=== PATIENT | male | born 1945 | race Caucasian/White ===

== ENCOUNTER → 2017-10-09 09:59 | Outpatient (CLI) | payer MEDICARE, SELFPAY ==
[2017-10-09 13:05] LABS: ALB/GLOB Ratio 1.3 RATIO (0.9-2.4); AST(SGOT) 17 U/L (15-37); Alanine Aminotransfer ALT/SGPT 25 U/L (16-61); Albumin, Serum 4.1 g/dL (3.2-5.0); Alkaline Phosphatase 47 U/L (45-117); Anion Gap 8 (5-15); BUN 19 mg/dL (7-18); BUN/Creat Ratio 21.2 RATIO (10-20); Calcium,Total 9.1 mg/dL (8.5-10.1); Chloride 104 mmol/L (98-107); Cholesterol 235 mg/dL (200); EST Glomerular Filtration Rate 89 mL/min (>60); Est Glom Filt Rate - Afr Amer 108 mL/min (>60); Globulin 3.2 g/dL (2.2-4.2); Glucose 94 mg/dL (74-106); High Density Lipoprotein 49 mg/dL; Potassium 4.2 mmol/L (3.5-5.1); Protein, Total 7.3 g/dL (6.4-8.2); Sodium Level 140 mmol/L (136-145); Triglycerides 115 mg/dL; Very Low Density Lipoprotein 23 mg/dL (5-40)
[2017-10-09 13:35] LABS: Microalbumin,Random Urine 12.1 mg/L (NO RANGE EST.)
== END ==
PROVIDERS: Family Provider Family Medicine; PCP Family Medicine; Visit Provider Family Medicine
DX: Z00.00 Encounter for general adult medical examination without abnormal findings (principal); R35.0 Frequency of micturition
CPT/HCPCS: 36415; 80053; 80061; 82043; 82570

== ENCOUNTER → 2019-02-04 09:04 | Outpatient (CLI) | payer MEDICARE, SELFPAY ==
[2019-02-04 12:55] LABS: ALB/GLOB Ratio 1.4 RATIO (0.9-2.4); AST(SGOT) 13 U/L (15-37); Alanine Aminotransfer ALT/SGPT 23 U/L (16-61); Albumin, Serum 4.2 g/dL (3.2-5.0); Alkaline Phosphatase 47 U/L (45-117); Anion Gap 7 (5-15); BUN 20 mg/dL (7-18); BUN/Creat Ratio 20.3 RATIO (10-20); Calcium,Total 9.2 mg/dL (8.5-10.1); Chloride 107 mmol/L (98-107); Cholesterol 222 mg/dL (200); Creatinine, Serum 0.98 mg/dL (0.70-1.30); EST Glomerular Filtration Rate 80 mL/min (>60); Est Glom Filt Rate - Afr Amer 96 mL/min (>60); Globulin 2.9 g/dL (2.2-4.2); Glucose 94 mg/dL (74-106); High Density Lipoprotein 49 mg/dL; PSA,Total - Annual Screen 0.56 ng/mL (0.00-4.00); Potassium 4.8 mmol/L (3.5-5.1); Protein, Total 7.1 g/dL (6.4-8.2); Sodium Level 141 mmol/L (136-145); Thyroid Stim Hormone (TSH) 2.29 uIU/mL (0.358-3.74); Triglycerides 127 mg/dL; Very Low Density Lipoprotein 25 mg/dL (5-40)
== END ==
PROVIDERS: Family Provider Family Medicine; PCP Family Medicine; Referring Provider Family Medicine; Visit Provider Family Medicine
DX: E78.00 Pure hypercholesterolemia, unspecified (principal); N40.0 Benign prostatic hyperplasia without lower urinary tract symptoms
CPT/HCPCS: 36415; 80053; 80061; 84153; 84443; G0103

== ENCOUNTER → 2020-02-17 07:20 | Outpatient (CLI) | payer MEDICARE, SELFPAY ==
[2020-02-17 10:11] LABS: ALB/GLOB Ratio 1.4 RATIO (0.9-2.4); AST(SGOT) 9 U/L (15-37); Alanine Aminotransfer ALT/SGPT 18 U/L (16-61); Albumin, Serum 4.2 g/dL (3.2-5.0); Alkaline Phosphatase 42 U/L (45-117); Anion Gap 5 (5-15); BUN 18 mg/dL (7-18); BUN/Creat Ratio 18.5 RATIO (10-20); Calcium,Total 9.4 mg/dL (8.5-10.1); Chloride 108 mmol/L (98-107); Cholesterol 232 mg/dL (200); Creatinine, Serum 0.97 mg/dL (0.70-1.30); EST Glomerular Filtration Rate 81 mL/min (>60); Est Glom Filt Rate - Afr Amer 98 mL/min (>60); Glucose 96 mg/dL (74-106); High Density Lipoprotein 49 mg/dL; Protein, Total 7.2 g/dL (6.4-8.2); Sodium Level 142 mmol/L (136-145); Thyroid Stim Hormone (TSH) 2.28 uIU/mL (0.358-3.74); Triglycerides 123 mg/dL; Very Low Density Lipoprotein 25 mg/dL (5-40)
== END ==
PROVIDERS: PCP Family Medicine; Referring Provider Family Medicine; Visit Provider Family Medicine
DX: E78.00 Pure hypercholesterolemia, unspecified (principal)
CPT/HCPCS: 36415; 80053; 80061; 84443

== ENCOUNTER 2020-09-03 17:06 | Outpatient (RCR) | payer MEDICARE, SELFPAY | END 2020-09-03 23:59 | LOC: IMMUN 17:06 | PROVIDERS: PCP Family Medicine; Referring Provider Family Medicine; Visit Provider Family Medicine | DX: Z23 Encounter for immunization (principal) | CPT/HCPCS: 0011A; 0012A ==

== ENCOUNTER → 2021-04-10 09:43 | Outpatient (CLI) | payer MEDICARE, SELFPAY ==
[2021-04-10 10:46] LABS: ALB/GLOB Ratio 1.2 RATIO (0.9-2.4); AST(SGOT) 13 U/L (15-37); Alanine Aminotransfer ALT/SGPT 22 U/L (16-61); Alkaline Phosphatase 48 U/L (45-117); Anion Gap 6 (5-15); BUN 17 mg/dL (7-18); BUN/Creat Ratio 17.5 RATIO (10-20); Calcium,Total 9.2 mg/dL (8.5-10.1); Chloride 105 mmol/L (98-107); Cholesterol 240 mg/dL (200); Creatinine, Serum 0.97 mg/dL (0.70-1.30); EST Glomerular Filtration Rate 81 mL/min (>60); Est Glom Filt Rate - Afr Amer 98 mL/min (>60); Globulin 3.3 g/dL (2.2-4.2); Glucose 104 mg/dL (74-106); High Density Lipoprotein 52 mg/dL; PSA,Total - Annual Screen 0.52 ng/mL (0.00-4.00); Potassium 4.8 mmol/L (3.5-5.1); Protein, Total 7.3 g/dL (6.4-8.2); Sodium Level 140 mmol/L (136-145); Thyroid Stim Hormone (TSH) 1.98 uIU/mL (0.358-3.74); Triglycerides 122 mg/dL; Very Low Density Lipoprotein 24 mg/dL (5-40)
[2021-04-10 11:27] LABS: Hepatitis C Antibody Non-Reactive (Nonreactive)
== END ==
PROVIDERS: PCP Family Medicine; Referring Provider Family Medicine; Visit Provider Nurse Practitioner Family
DX: Z13.1 Encounter for screening for diabetes mellitus (principal); Z13.29 Encounter for screening for other suspected endocrine disorder; Z11.59 Encounter for screening for other viral diseases; Z12.5 Encounter for screening for malignant neoplasm of prostate; E78.00 Pure hypercholesterolemia, unspecified; N40.0 Benign prostatic hyperplasia without lower urinary tract symptoms
CPT/HCPCS: 36415; 80053; 80061; 84153; 84443; 86803; G0103

== ENCOUNTER 2021-10-08 10:36 | Outpatient (CLI) | payer MEDICARE, SELFPAY ==
[2021-10-08 12:15] LABS: Absolute Lymphocyte Count 1.08 X10^3/uL (0.83-4.51); Absolute Neutrophil Count 2.9 X10^3/uL (2.0-7.7); Basophil# 0.02 X10^3/uL; Basophil% 0.5 % (0-1); Eosinophil# 0.05 X10^3/uL; Eosinophils% 1.1 % (0-5); Hematocrit 42.2 % (40-54); Lymphocyte # 1.08 X10^3/ul (0.83-4.51); Lymphocyte % 24.8 % (19-41); Mean Corp Hgb Conc 33.2 g/dL (32-36); Mean Corpuscular Hgb 31.7 pg (27.0-32.0); Mean Corpuscular Volume 95.7 fL (80-94); Mean Platelet Vol. 11.1 fl (6.2-12.0); Monocyte# 0.32 X10^3/uL; Monocyte% 7.3 % (0-10); NRBC Flagged by Analyzer 0 % (0-5); Neutrophil # 2.88 X10^3/uL (2.7-7.7); Neutrophil % 66.1 % (47-70); Platelet Count 172 K/mm3 (150-450); RBC Distribution Width CV 12.6 % (11.6-14.6); RBC Distribution Width SD 44.3 fl (35.1-43.9); Red Blood Count 4.41 M/mm3 (4.6-6.2); White Blood Count 4.4 K/mm3 (4.4-11.0)
[2021-10-08 13:26] LABS: ALB/GLOB Ratio 1.4 RATIO (0.9-2.4); AST(SGOT) 15 U/L (15-37); Alanine Aminotransfer ALT/SGPT 19 U/L (16-61); Albumin, Serum 4.2 g/dL (3.2-5.0); Alkaline Phosphatase 41 U/L (45-117); Anion Gap 6 (5-15); BUN 18 mg/dL (7-18); Calcium,Total 9.9 mg/dL (8.5-10.1); Chloride 107 mmol/L (98-107); Creatinine, Serum 0.95 mg/dL (0.70-1.30); EST Glomerular Filtration Rate 83 mL/min (>60); Est Glom Filt Rate - Afr Amer 100 mL/min (>60); Glucose 93 mg/dL (74-106); Lipase 35 U/L (73-393); Potassium 4.3 mmol/L (3.5-5.1); Protein, Total 7.2 g/dL (6.4-8.2); Sodium Level 140 mmol/L (136-145); Thyroid Stim Hormone (TSH) 1.99 uIU/mL (0.358-3.74)
== END 2021-10-08 23:59 | disposition home or self-care (01) ==
LOC: MFPLAB 10:41
PROVIDERS: PCP Family Medicine; Referring Provider Family Medicine; Visit Provider Family Medicine
DX: R10.84 Generalized abdominal pain (principal); R00.2 Palpitations
CPT/HCPCS: 36415; 80053; 83690; 84443; 85025

== ENCOUNTER 2021-10-09 10:58 | Outpatient (CLI) | payer MEDICARE, SELFPAY | END 2021-10-09 23:59 | disposition home or self-care (01) | PROVIDERS: PCP Family Medicine; Referring Provider Family Medicine; Visit Provider Family Medicine | DX: R10.84 Generalized abdominal pain (principal) | CPT/HCPCS: 83986 ==

== ENCOUNTER 2021-10-16 06:43 | Outpatient (CLI) | payer MEDICARE, SELFPAY ==
--- NOTE | 2021-10-16 06:46 | CT_ITS ---
STUDY: CT ABDOMEN AND PELVIS WITHOUT CONTRAST REASON FOR EXAM: Male, 75 years old. Intermittent abdominal pain, bloating, burping and frequent urination. RADIATION DOSAGE (If Supplied By Facility): CTDIvol = ( 8.32 ) mGy, DLP = ( 394.98 ) mGycm TECHNIQUE: Transaxial images were obtained from the dome of the diaphragm to the symphysis pubis without oral contrast, and without intravenous contrast. Sagittal and coronal images were reconstructed. Individualized dose optimization techniques were used for this CT. COMPARISON: None. FINDINGS: The visualized lung bases are unremarkable. The visualized portions of the heart are within normal limits. Normal liver. Increased densities are seen within the gallbladder lumen. This may be secondary to either tiny gallstones or sludge within the gallbladder lumen. Correlation with ultrasound is recommended if clinically indicated. Normal spleen. Normal pancreas. There is hyperplasia of the left adrenal gland. Normal right kidney. Normal left kidney. There is a small hiatal hernia. Normal small intestine. There are scattered colonic diverticula consistent with diverticulosis. Moderate amount of fecal material is seen in the colon. The appendix is visualized and appears normal. There is scattered atherosclerotic calcification of the abdominal aorta, without a demonstrated aneurysm. Normal inferior vena cava. Normal retroperitoneum. Diffusely thickened urinary bladder wall. The prostate measures 2.7 cm x 4.4 cm. Phleboliths are seen within the pelvis. There is a small umbilical hernia containing fat. There are diffuse degenerative changes of the visualized lumbar spine. CT/Abdomen/Pelvis without Cont IMPRESSION: Increased density seen within the gallbladder lumen. Correlation with ultrasound of the gallbladder is recommended if clinically indicated. Diffusely thickened urinary bladder wall. Electronically Signed: Dileep Frank MD at 8:52 EDT ,
== END 2021-10-16 23:59 | disposition home or self-care (01) ==
LOC: CT 06:43
PROVIDERS: PCP Family Medicine; Visit Provider Family Medicine
DX: R10.84 Generalized abdominal pain (principal); R35.0 Frequency of micturition; R14.0 Abdominal distension (gaseous)
CPT/HCPCS: 74176

== ENCOUNTER → 2021-10-24 | Outpatient (CLI) | payer MEDICARE, SELFPAY ==
--- NOTE | 2021-10-24 08:51 | US_ITS ---
STUDY: ABDOMINAL ULTRASOUND - RIGHT UPPER QUADRANT REASON FOR VISIT: Male, 75 years old gallstones TECHNIQUE: Ultrasound evaluation of the right upper quadrant was performed with real-time and static kenny-scale imaging. TECHNICAL QUALITY: Adequate. COMPARISON: None. FINDINGS: Liver: The liver measures 14.2 cm. There is normal echogenicity of the liver. The bile ducts are within normal limits. There is hepatic color flow. The direction of portal flow is hepatopetal. There is no demonstrated mass lesion. Gallbladder: Normal distended gallbladder. The gallbladder wall measures 2 mm. There is a negative sonographic Gleason''s sign. There is no pericholecystic fluid. There are no gallstones. Common Bile Duct (C.B.D.): The common bile duct measures 5 mm. Pancreas: Normal size of the head, body and tail of the pancreas. There is normal echogenicity of the pancreas. There is no demonstrated pancreatic mass or cyst. Right Kidney: Normal size of the right kidney. The right kidney measures 11.4 x 4.8 x 5.1 cm. Normal renal cortex. The right cortex measures 1.1 cm. There is no demonstrated renal mass or cyst. There is no right hydronephrosis. US/Abdomen Limited IMPRESSION: Normal right upper quadrant ultrasound examination. Electronically Signed: Zan Parker MD at 11:43 EDT ,
== END | disposition home or self-care (01) ==
LOC: US 08:50
PROVIDERS: PCP Family Medicine; Referring Provider Family Medicine; Visit Provider Family Medicine
DX: K80.20 Calculus of gallbladder without cholecystitis without obstruction (principal)
CPT/HCPCS: 76705

== ENCOUNTER → 2022-03-13 | Outpatient (CLI) | payer MEDICARE, SELFPAY ==
--- NOTE | 2022-03-13 07:47 | ECHOCS_ITS ---
Version 2 Reason For Study: ARRHYTHMIA Procedure This was a 2D Doppler, Color Flow transthoracic echocardiogram. The study was technically difficult. Due to body habitus. Contrast injection was performed. Exam performed in department. Left Ventricle Normal LV size. Left ventricular systolic function is normal. The estimated ejection fraction is 55 %. No regional wall motion abnormalities noted. Right Ventricle Normal RV size. Normal systolic function. Atria Normal left atrium. Normal right atrium. Patent foramen ovale. Hypermobile atrial septum. Mitral Valve Normal mitral valve. Tricuspid Valve Normal tricuspid valve. Aortic Valve Trisinus/trileaflet aortic valve. Pulmonic Valve Normal pulmonic valve. Great Vessels Normal aortic root. The pulmonary artery is normal size. Normal inferior vena cava. Pericardium/Pleural No pericardial effusion. Medication 22 gauge I.V. with prn adaptor inserted into left arm. Performed a rapid injection of agitated mix of 9 cc saline and 1cc air to assess for atrial septal defect. Diluted definity 3.0ml given slow IV push to enhance endocardial definition. MMode/2D Measurements & Calculations LVIDd: 5.7 cm IVSd: 0.90 cm LVOT diam: 2.2 cm LVIDs: 3.5 cm LVPWd: 0.90 cm RVDd: 4.3 cm FS: 38.6 % LVOT area: 3.9 cm2 Ao root diam: 4.0 cm LAV(MOD-bp): 91.9 ml LVAd ap4: 43.9 cm2 LAV(MOD-bp) Indexed: 43.5 ml/m2 LVLd ap4: 10.1 cm LAV(MOD-sp2): 87.6 ml EDV(MOD-sp4): 164.0 ml LAV(MOD-sp4): 80.8 ml EDV(sp4-el): 162.6 ml LVAs ap4: 26.6 cm2 LVLs ap4: 8.5 cm ESV(MOD-sp4): 70.4 ml ESV(sp4-el): 71.2 ml EF(MOD-sp4): 57.1 % EF(sp4-el): 56.2 % LVAd ap2: 31.4 cm2 SV(MOD-sp4): 93.6 ml SV(MOD-sp2): 47.0 ml LVLd ap2: 9.2 cm EDV(MOD-sp2): 90.1 ml EDV(sp2-el): 91.3 ml LVAs ap2: 19.7 cm2 LVLs ap2: 7.7 cm ESV(MOD-sp2): 43.1 ml ESV(sp2-el): 42.5 ml EF(MOD-sp2): 52.2 % SV(sp4-el): 91.5 ml LA dimension(2D): 4.3 cm LA A4 area: 23.8 cm2 RA A4 area: 19.1 cm2 Time Measurements MV dec time: 0.20 sec Doppler Measurements & Calculations MV E max jacoby: 83.2 cm/sec Lat Peak E' Jacoby: 14.5 cm/sec Med Peak E' Jacoby: 9.4 cm/sec MV A max jacoby: 67.7 cm/sec E/E' lat: 5.7 E/E' med: 8.8 MV E/A: 1.2 Ao V2 max: 141.7 cm/sec LV V1 max: 110.4 cm/sec MV dec slope: 434.0 cm/sec2 Ao max P.0 mmHg LV V1 max P.9 mmHg Ao V2 mean: 102.0 cm/sec LV V1 mean P.6 mmHg Ao mean P.7 mmHg LV V1 mean: 76.5 cm/sec Ao V2 VTI: 38.4 cm LV V1 VTI: 27.1 cm MELANY(I,D): 2.7 cm2 MELANY(V,D): 3.0 cm2 SV(LVOT): 105.3 ml PA V2 max: 97.0 cm/sec TR max jacoby: 293.9 cm/sec TR max P.7 mmHg ECHO/Echo Complete W/ Contrast Interpretation Summary Normal LV size. Left ventricular systolic function is normal. The estimated ejection fraction is 55 %. Patent foramen ovale. Hypermobile atrial septum. Contrast injection was performed. Ordering Physician: Emil Coello Referring Physician: Brendan Reyez Performed By: Caryl Bryant RDCS, RVT
== END | disposition home or self-care (01) ==
PROVIDERS: PCP Family Medicine; Referring Provider Internal Medicine Cardiovascular Disease; Visit Provider Internal Medicine Cardiovascular Disease
DX: R00.2 Palpitations (principal)
CPT/HCPCS: 93306; Q9957; A4216; C8929

== ENCOUNTER → 2022-06-09 | Outpatient (CLI) | payer MEDICARE, SELFPAY ==
[2022-06-09 10:06] LABS: Absolute Lymphocyte Count 1.25 X10^3/uL (0.83-4.51); Absolute Neutrophil Count 3.8 X10^3/uL (2.0-7.7); Basophil# 0.03 X10^3/uL; Basophil% 0.5 % (0-1); Eosinophil# 0.17 X10^3/uL; Hematocrit 43.5 % (40-54); Hemoglobin 14.8 g/dL (13.0-16.5); Lymphocyte # 1.25 X10^3/ul (0.83-4.51); Lymphocyte % 22.2 % (19-41); Mean Corpuscular Volume 97.1 fL (80-94); Mean Platelet Vol. 11.5 fl (6.2-12.0); Monocyte# 0.36 X10^3/uL; Monocyte% 6.4 % (0-10); NRBC Flagged by Analyzer 0 % (0-5); Neutrophil # 3.79 X10^3/uL (2.7-7.7); Neutrophil % 67.5 % (47-70); Platelet Count 166 K/mm3 (150-450); RBC Distribution Width CV 12.5 % (11.6-14.6); RBC Distribution Width SD 45.1 fl (35.1-43.9); Red Blood Count 4.48 M/mm3 (4.6-6.2); White Blood Count 5.6 K/mm3 (4.4-11.0)
[2022-06-09 10:41] LABS: ALB/GLOB Ratio 1.5 RATIO (0.9-2.4); AST(SGOT) 13 U/L (15-37); Alanine Aminotransfer ALT/SGPT 23 U/L (16-61); Albumin, Serum 4.1 g/dL (3.2-5.0); Alkaline Phosphatase 52 U/L (45-117); Anion Gap 5 (5-15); BUN 25 mg/dL (7-18); BUN/Creat Ratio 24.8 RATIO (10-20); Calcium,Total 9.1 mg/dL (8.5-10.1); Chloride 104 mmol/L (98-107); Creatinine, Serum 1.01 mg/dL (0.70-1.30); EST Glomerular Filtration Rate 77 mL/min (>60); Est Glom Filt Rate - Afr Amer 93 mL/min (>60); Globulin 2.7 g/dL (2.2-4.2); Glucose 93 mg/dL (74-106); Magnesium 2.5 mg/dL (1.6-2.6); Potassium 4.3 mmol/L (3.5-5.1); Protein, Total 6.8 g/dL (6.4-8.2); Sodium Level 140 mmol/L (136-145); Thyroid Stim Hormone (TSH) 2.05 uIU/mL (0.358-3.74)
== END | disposition home or self-care (01) ==
PROVIDERS: PCP Family Medicine; Referring Provider Family Medicine; Visit Provider Family Medicine
DX: I47.1 Supraventricular tachycardia (principal); K86.89 Other specified diseases of pancreas
CPT/HCPCS: 36415; 80053; 83735; 84443; 85025

== ENCOUNTER → 2022-09-08 | Outpatient (CLI) | payer MEDICARE, SELFPAY ==
[2022-09-08 15:43] LABS: Anion Gap 8 (5-15); BUN 15 mg/dL (7-18); BUN/Creat Ratio 16.7 RATIO (10-20); Calcium,Total 9.7 mg/dL (8.5-10.1); Chloride 104 mmol/L (98-107); EST Glomerular Filtration Rate 88 mL/min (>60); Est Glom Filt Rate - Afr Amer 106 mL/min (>60); Glucose 101 mg/dL (74-106); Potassium 4.7 mmol/L (3.5-5.1); Sodium Level 139 mmol/L (136-145)
== END | disposition home or self-care (01) ==
LOC: MFPLAB 12:08
PROVIDERS: PCP Family Medicine; Visit Provider Family Medicine
DX: Z01.818 Encounter for other preprocedural examination (principal)
CPT/HCPCS: 36415; 80048

== ENCOUNTER → 2023-05-11 | Outpatient (CLI) | payer MEDICARE, SELFPAY ==
[2023-05-11 12:23] LABS: Absolute Lymphocyte Count 1.27 X10^3/uL (0.83-4.51); Absolute Neutrophil Count 3.3 X10^3/uL (2.0-7.7); Basophil# 0.05 X10^3/uL; Hematocrit 43.8 % (40-54); Hemoglobin 14.5 g/dL (13.0-16.5); Lymphocyte # 1.27 X10^3/ul (0.83-4.51); Lymphocyte % 25.1 % (19-41); Mean Corp Hgb Conc 33.1 g/dL (32-36); Mean Corpuscular Hgb 32.2 pg (27.0-32.0); Mean Corpuscular Volume 97.3 fL (80-94); Monocyte# 0.37 X10^3/uL; Monocyte% 7.3 % (0-10); NRBC Flagged by Analyzer 0 % (0-5); Neutrophil # 3.25 X10^3/uL (2.7-7.7); Neutrophil % 64.4 % (47-70); Platelet Count 190 K/mm3 (150-450); RBC Distribution Width CV 12.6 % (11.6-14.6); RBC Distribution Width SD 45.2 fl (35.1-43.9); White Blood Count 5.1 K/mm3 (4.4-11.0)
[2023-05-11 13:07] LABS: ALB/GLOB Ratio 1.2 RATIO (0.9-2.4); AST(SGOT) 12 U/L (15-37); Alanine Aminotransfer ALT/SGPT 20 U/L (16-61); Alkaline Phosphatase 49 U/L (45-117); Anion Gap 6 (5-15); BUN 17 mg/dL (7-18); BUN/Creat Ratio 17.3 RATIO (10-20); Calcium,Total 9.2 mg/dL (8.5-10.1); Chloride 107 mmol/L (98-107); Cholesterol 213 mg/dL (200); Creatinine, Serum 0.98 mg/dL (0.70-1.30); EST Glomerular Filtration Rate 79 mL/min (>60); Est Glom Filt Rate - Afr Amer 96 mL/min (>60); Globulin 3.3 g/dL (2.2-4.2); Glucose 99 mg/dL (74-106); High Density Lipoprotein 50 mg/dL; PSA,Total - Annual Screen 0.51 ng/mL (0.00-4.00); Potassium 4.6 mmol/L (3.5-5.1); Protein, Total 7.3 g/dL (6.4-8.2); Sodium Level 140 mmol/L (136-145); Triglycerides 175 mg/dL; Very Low Density Lipoprotein 35 mg/dL (5-40)
== END | disposition home or self-care (01) ==
LOC: MFPLAB 10:45
PROVIDERS: PCP Family Medicine; Visit Provider Family Medicine
DX: I83.812 Varicose veins of left lower extremity with pain (principal); Z13.220 Encounter for screening for lipoid disorders; Z12.5 Encounter for screening for malignant neoplasm of prostate; E78.6 Lipoprotein deficiency
CPT/HCPCS: 36415; 80053; 80061; 84153; 85025; G0103

== ENCOUNTER 2023-06-04 09:00 | Outpatient (RCR) | payer MEDICARE, SELFPAY ==
[2023-05-26 09:00] VITALS: BP 157/84; PULSE 61; RESP 16; TEMP 36.5; BMI 27.1
--- NOTE | 2023-05-26 14:08 | HP.PCM_ITS ---
History of Present Illness Date of Service: 05/26/23 Chief Complaint: Chronic venous insufficiency, varicose veins with inflammation and ulceration, venous hypertension with inflammation and ulceration, venous stasis ulceration?left lower extremity History of Wound: This is a 77-year-old male who is of relatively normal body habitus. He has a longstanding history of venous disease in his left lower extremity. He has a history of large varicose veins in his left lower extremity which have been associated with pain and discomfort. He has recently developed an ulceration in the left medial supramalleolar area. A tuft of medium sized veins are noted approximately 6 cm proximal to the left medial malleolus, just superior to the ulceration. A tuft of large varicosities are noted near the left medial malleolus. The patient is active. He sleeps on a flat mattress at night. He denies a history of thrombophlebitis. Recent laboratory studies have been obtained on May 11, 2023, with results as follows: White blood count 5.1, hemoglobin 14.5, hematocrit 43.8, platelets 190,000, sodium 140, potassium 4.6, chloride 107, BUN 17, creatinine 0.98, glucose 99, calcium 9.2, total bilirubin 0.70, AST 12, ALT 20, alkaline phosphatase 49, total protein 7.3, serum albumin 4.0. 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, with ulcer of ankle limited to breakdown of skin Varicose veins of lower extremity with inflammation, with ulcer of ankle with fat layer exposed Venous stasis ulcer of left ankle Home Medications multivitamin 1 tab PO DAILY 02/18/22 [History Last Taken Unknown] aspirin 81 mg tablet,delayed release (Adult Low Dose Aspirin) 81 mg PO DAILY #30 tabs 02/19/23 [Rx Last Taken Unknown] latanoprostene bunod 0.024 % eye drops (Vyzulta) 1 drp ophthalmic (eye) QHS 02/19/23 [History Last Taken Unknown] ammonium lactate 05/26/23 [History Last Taken Unknown] Allergy/AdvReac Type Severity Reaction Status Date / Time No Known Allergies Allergy Unverified 02/19/23 09:29 Surgical History History of cataract extraction History of cataract surgery History of colonoscopy with polypectomy History of tonsillectomy History of tonsillectomy Social History Smoking Status: Former smoker Vital Signs Vital Signs Vital Signs: 05/26/23 09:00 Temperature 97.7 F L Temperature Source Temporal Pulse Rate 61 Respiratory Rate 16 Blood Pressure 157/84 H Blood Pressure Mean 108 Blood Pressure Source Monitor Blood Pressure Position Sitting Blood Pressure Location Left Arm Oxygen Delivery Method Room Air Weight Weight: 200 lb Body Mass Index (BMI) 27.1 Physical Exam Const alert, oriented x3, no apparent distress, average body habitus, no limitations, healthy appearing and well nourished General Appearance: cooperative, comfortable, well kempt and well developed Orientation / Consciousness: awake, oriented to person, oriented to place and oriented to time HEENT normocephalic, head/scalp atraumatic and hearing grossly normal bilaterally Head and Scalp: normal to inspection, normocephalic and atraumatic External Ear: external ears normal Eyes PERRL and EOMs intact bilaterally General Eye: normal appearance of both eyes Resp normal respiratory effort, normal air movement, no retractions and no use of accessory muscles Effort and Inspection: able to speak in complete sentences and symmetric chest movement Extremity no calf tenderness General Extremity: Negative for clubbing or cyanosis Skin Wound Narrative: No significant swelling or edema are noted in the patient's left lower extremity. A superficial excoriation is noted approximately 3 to 4 cm proximal to the left medial malleolus. Dimensions are documented elsewhere. There is no sign of infection or cellulitis. A tuft of large varicosities are noted near the left medial malleolus. A tuft of small-sized varicosities are noted approximately 6 cm proximal to the left medial malleolus, superior to the patient's excoriation. Hair: male pattern alopecia Neuro oriented x3, CN's II-XII intact bilaterally, moves all extremities and no focal motor deficits Sensorium / Orientation: awake, alert, oriented to person, oriented to place and oriented to time Psych Appearance: grossly normal and appropriate Attitude: calm Activity / Motor Behavior: appropriate eye contact Speech: normal speech Mood & Affect: euthymic mood Thought Process: normal thought process Thought Content: normal thought content Attention / Concentration: attention grossly intact Debridement Note Debridement Note No debridement was completed: No debridement was completed today Post-Debridement Measurements and Additional Note: Post-Debridement Measurements/Treatment - Nurse 1 - General Ulcer Assessment Start: 05/26/23 08:56 Freq: Status: Active Protocol: [email or web address].[email or web address] Activity Type Activity Date Activity User E-sign Co-sign Detail Recorded Client Recorded Date Recorded By Document 05/26/23 09:00 Desktop 05/26/23 09:15 05/26/23 09:00 - Today's Visit Information Type of service Initial Visit Arrival Mode Ambulatory Transfer Assistance None Patient Identification Verified (Name & Yes ) Patient Requires Transmission-Based No Precautions Height and Weight Height 6 ft Weight 200 lb Weight in Pounds 200.0 lbs Weight Measurement Method Stated by Patient Body Mass Index (BMI) 27.1 BMI Classification Overweight BSA - Yuli 2.13 Vital Signs Temperature (97.8 F-99.1 F) 97.7 F L Temperature Source Temporal Pulse Rate (60-100) 61 Pulse Location Monitor Respiratory Rate (12-18) 16 Respiratory rate source Observation Oxygen Delivery Method Room Air Blood Pressure (90/60-120/80) 157/84 H Blood Pressure Mean 108 Source Monitor Position Sitting Blood Pressure Location Left Arm History Since Last Visit- (Skip if this is Patient's initial visit) Left Footwear Regular Shoe Right Footwear Regular Shoe Pain Scale: 0-10 Numeric Is Patient Pain Free? Yes Lower Extremity Assessment/ Foot Assessment/ Toe Nail Assessment Right -Claudication Assessment None -Posterior Tibial Doppler Multiphasic -Dorsalis Pedis Palpable Yes -Dorsalis Pedis Doppler Multiphasic -Extremity Color Pale -Hair Growth on Legs Yes -Hair Growth on Toes No -Temperature of Extremity Cool -Capillary Refill Less than 3 Seconds -Dependent Rubor No -Blanched when Elevated No -Lipodermatosclerosis No -Other Deformity No -Prior Foot Ulcer No -Charcot Joint No -Prior Amputation No -Thick Yes -Discolored Yes -Deformed No -Improper Length & Hygeine No Left -Claudication Assessment None -Posterior Tibial Doppler Multiphasic -Dorsalis Pedis Palpable Yes -Dorsalis Pedis Doppler Multiphasic -Extremity Color Pale -Hair Growth on Legs Yes -Hair Growth on Toes No -Temperature of Extremity Cool -Capillary Refill Less than 3 Seconds -Dependent Rubor No -Blanched when Elevated No -Other Deformity No -Prior Foot Ulcer No -Charcot Joint No -Prior Amputation No -Thick No -Discolored No -Deformed No -Improper Length & Hygeine No Communication Assessment Preferred language Khmer Ceramic Coater Machine Required No Able to Read Yes Able to Write Yes Communication Tools None Right Hearing Abillity Normal Left Hearing Abillity Normal Visual Assistive Devices Glasses Functional Assessment Recent Decline in Ability to Perform Denies Any Declines Culture/Restorationism/Manager Of Training And Development Cultural/Restorationism Needs that may affect No Treatment Plan Would you allow our hospital polygraph operator to No meet you for the purpose of spiritual/ emotional support? Manager Of Training And Development to contact place of rastafari No WC - Nurse 1 - General Ulcer Measurement Start: 05/26/23 08:56 Freq: Status: Active Protocol: Activity Type Activity Date Activity User E-sign Co-sign Detail Recorded Client Recorded Date Recorded By Document 05/26/23 09:00 [employer] 05/26/23 09:15 05/26/23 09:00 Wound Center Nurse 1 Left posterior lower leg -Combined with other wound No -Date of Last Picture (Recall this 05/26/23 field) -Photo Taken Yes -Tunneling No -Undermining/Tunneling No -Circular Undermining No -Wound Comment(s) red area with thin skin area removed Right Calf (cm) 35.8 Right Ankle (cm) 22.3 Left Calf (cm) 36.8 Left Ankle (cm) 22.5 - Nurse 3 - General Ulcer D/C NN Start: 05/26/23 08:56 Freq: Status: Active Protocol: Activity Type Activity Date Activity User E-sign Co-sign Detail Recorded Client Recorded Date Recorded By Document 05/26/23 09:52 GM Desktop 05/26/23 09:54 GM 05/26/23 09:52 Wound Care Center Nurse 3 Right -Lotion applied to leg before Yes compression wrap -Tubular Bandage Single Layer -Size of Tubigrip Used Size D -Size D ($) 1 Left -Lotion applied to leg before Yes compression wrap -Tubular Bandage Single Layer -Size of Tubigrip Used Size D -Size D ($) 1 Pain Scale: 0-10 Numeric Is Patient Pain Free? Yes Teaching: Wound Center Skin Care -Person Taught Patient -Teaching Method Discussion, Demonstration -Response to teaching Verbalize understanding How to apply compression -Person Taught Patient -Teaching Method Discussion, Demonstration -Response to teaching Verbalize understanding WC - Visit Discharge Discharge Condition Stable Ambulatory Status Ambulatory Transportation Private Auto Medication Reconcilliation completed & Yes provided to patient/care provider Clinical Summary of Care Provided Yes Assessment/Plan Assessment/Plan (1) Venous stasis ulcer of left ankle: CODE(S): I83.023 - Varicose veins of left lower extremity with ulcer of ankle; L97.329 - Non-pressure chronic ulcer of left ankle with unspecified severity QUALIFIERS: Varicose vein presence: with varicose veins Non- pressure ulcer stage: limited to breakdown of skin Qualified Code(s): I83.023 - Varicose veins of left lower extremity with ulcer of ankle; L97.321 - Non- pressure chronic ulcer of left ankle limited to breakdown of skin (2) Chronic venous insufficiency: CODE(S): I87.2 - Venous insufficiency (chronic) (peripheral) (3) Chronic venous hypertension with ulcer and inflammation involving left side: CODE(S): I87.332 - Chronic venous hypertension (idiopathic) with ulcer and inflammation of left lower extremity (4) Varicose veins of left lower extremity with inflammation, with ulcer of ankle limited to breakdown of skin: CODE(S): I83.223 - Varicose veins of left lower extremity with both ulcer of ankle and inflammation; L97.321 - Non-pressure chronic ulcer of left ankle limited to breakdown of skin (5) PFO (patent foramen ovale): CODE(S): Q21.12 - Patent foramen ovale (6) Paroxysmal atrial tachycardia: CODE(S): I47.1 - Supraventricular tachycardia (7) Tachycardia: CODE(S): R00.0 - Tachycardia, unspecified (8) Hyperlipidemia: CODE(S): E78.5 - Hyperlipidemia, unspecified (9) Lactose intolerance in adult: CODE(S): E73.9 - Lactose intolerance, unspecified (10) Erectile dysfunction: CODE(S): N52.9 - Male erectile dysfunction, unspecified (11) Varicose veins of lower extremity with inflammation, with ulcer of ankle with fat layer exposed: CODE(S): I83.203 - Varicose veins of unspecified lower extremity with both ulcer of ankle and inflammation; L97.302 - Non-pressure chronic ulcer of unspecified ankle with fat layer exposed (12) History of cataract extraction: CODE(S): Z98.49 - Cataract extraction status, unspecified eye (13) History of tonsillectomy: CODE(S): Z90.89 - Acquired absence of other organs (14) Umbilical hernia: CODE(S): K42.9 - Umbilical hernia without obstruction or gangrene PLAN: Plan This is a 77-year-old male with a long history of chronic venous insufficiency, chronic venous hypertension, lower extremity swelling and edema, and a recent superficial venous ulceration in the left lower extremity. A lengthy discussion has been undertaken with the patient with regard to the appropriate lifestyle changes relative to his chronic venous disease. The patient is to elevate his lower extremities is much as possible, during nighttime and daytime hours. He is to continue sleeping on a flat mattress at night. Leg elevation is to be to heart level, or higher, is much as possible. Prolonged idle sitting has been discouraged. Activity has been encouraged. The patient's weight appears to be optimal. We are to go make compression to the lower extremities by means of Tubigrip's, which will be implemented immediately. The patient has been provided a prescription for graduated compression stockings of 20 to 30 mmHg compression, and has been instructed to seek proper fitting at a local medical supply store. These are to be worn daily. Nonsteroidal anti-inflammatory medications have been recommended for pain, as needed. Patient is to return in 1 to 2 weeks, following the performance of a venous duplex examination. The venous anatomy will be evaluated, to determine whether the patient may be a beneficiary of a superficial venous ablation procedure. Total time: 50 minutes
--- NOTE | 2023-06-04 08:47 | VDLE_ITS ---
Reason For Study: Varicose veins RIGHT LEFT CFV is compressible, spontaneous, phasic, CFV is compressible, spontaneous, phasic, competent and demonstrates normal competent, and demonstrates normal augmentation. augmentation. FV is compressible, spontaneous, phasic, FV is compressible, spontaneous, phasic, competent and demonstrates normal competent and demonstrates normal augmentation. augmentation. POP V is compressible, spontaneous, phasic, POP V is compressible, spontaneous, phasic, competent and demonstrates normal competent and demonstrates normal augmentation. augmentation. T/P Trunk is compressible. T/P Trunk is compressible. PTV is compressible. PTV is compressible. RT PerV is compressible. LT PerV is compressible. SFJ is competent and measures 0.66 x 0.70 cm. SFJ is competent and measures 0.75 x 0.63 cm. GSV proximal thigh measures 0.28 x 0.28 cm. GSV proximal thigh measures 0.30 x 0.33 cm. GSV at knee measures 0.31 x 0.29 cm. GSV above knee is competent. GSV INCOMPETENT throughout for greater than GSV at knee measures 0.27 x 0.27 cm. 0.5 seconds. GSV below knee is INCOMPETENT for greater SSV at junction is competent and measures than 0.5 seconds. 0.18 x 0.20 cm. SSV proximal calf is INCOMPETENT for greater Procedure than 0.5 seconds and measures 0.25 x 0.26 cm. This is a venous duplex using B-mode, color flow and spectral Doppler. Exam performed in department. Patient was scanned in reverse Trendelenburg position during reflux assessment. A preliminary report was called and/or faxed to . VL/Venous Duplex US - Madi Extrem Interpretation Summary Deep veins of the lower extremities are bilaterally patent and compressible seg mentally. There is no evidence of deep vein thrombosis on either side. Valvular competence appears in tact within the proximal deep venous systems bilaterally. The great saphenous veins appear bila terally patent and compressible segmentally. Sapheno-femoral junctions are bilaterally competent . The right great saphenous vein appears segmentally incompetent. The left great saphenous vein a ppears competent above the knee. The left great saphenous vein appears incompetent below the kne e. The right small saphenous vein is patent and competent. The left small saphenous vein is patent and incompetent. Ordering Physician: Fabrizio Kidd Referring Physician: Brendan Reyez Performed By: Kelly Damian RVT
== END 2023-06-08 15:26 | disposition home or self-care (01) ==
LOC: WC 09:00
PROVIDERS: PCP Family Medicine; Referring Provider Family Medicine; Visit Provider Surgery
DX: I83.223 Varicose veins of left lower extremity with both ulcer of ankle and inflammation (principal); L97.321 Non-pressure chronic ulcer of left ankle limited to breakdown of skin; E78.5 Hyperlipidemia, unspecified; K42.9 Umbilical hernia without obstruction or gangrene; Z87.891 Personal history of nicotine dependence; Q21.12 Patent foramen ovale; I47.19 Other supraventricular tachycardia
CPT/HCPCS: 93970; 99213; G0463

== ENCOUNTER 2023-06-09 08:46 | Outpatient (RCR) | payer MEDICARE, SELFPAY ==
[2023-06-09 08:59] VITALS: BP 145/86; PULSE 95; RESP 18; TEMP 35.9
--- NOTE | 2023-06-09 09:19 | HP.PCM_ITS ---
History of Present Illness Date of Service: 06/09/23 Chief Complaint: Chronic venous insufficiency, varicose veins with inflammation and ulceration, venous hypertension with inflammation and ulceration, venous stasis ulceration?left lower extremity History of Wound: This is a 77-year-old male who is of relatively normal body habitus. He has a longstanding history of venous disease in his left lower extremity. He has a history of large varicose veins in his left lower extremity which have been associated with pain and discomfort. He has recently developed an ulceration in the left medial supramalleolar area. A tuft of medium sized veins are noted approximately 6 cm proximal to the left medial malleolus, just superior to the ulceration. A tuft of large varicosities are noted near the left medial malleolus. The patient is active. He sleeps on a flat mattress at night. He denies a history of thrombophlebitis. Recent laboratory studies have been obtained on May 11, 2023, with results as follows: White blood count 5.1, hemoglobin 14.5, hematocrit 43.8, platelets 190,000, sodium 140, potassium 4.6, chloride 107, BUN 17, creatinine 0.98, glucose 99, calcium 9.2, total bilirubin 0.70, AST 12, ALT 20, alkaline phosphatase 49, total protein 7.3, serum albumin 4.0. 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, with ulcer of ankle limited to breakdown of skin Varicose veins of lower extremity with inflammation, with ulcer of ankle with fat layer exposed Venous stasis ulcer of left ankle Home Medications multivitamin 1 tab PO DAILY 02/18/22 [History Last Taken Unknown] aspirin 81 mg tablet,delayed release (Adult Low Dose Aspirin) 81 mg PO DAILY #30 tabs 02/19/23 [Rx Last Taken Unknown] latanoprostene bunod 0.024 % eye drops (Vyzulta) 1 drp ophthalmic (eye) QHS 02/19/23 [History Last Taken Unknown] ammonium lactate 05/26/23 [History Last Taken Unknown] Allergy/AdvReac Type Severity Reaction Status Date / Time No Known Allergies Allergy Unverified 02/19/23 09:29 Surgical History History of cataract extraction History of cataract surgery History of colonoscopy with polypectomy History of tonsillectomy History of tonsillectomy Social History Smoking Status: Former smoker Vital Signs Vital Signs Vital Signs: 06/09/23 08:59 Temperature 96.7 F L Temperature Source Temporal Pulse Rate 95 Respiratory Rate 18 Blood Pressure 145/86 H Blood Pressure Mean 105 Blood Pressure Source Monitor Blood Pressure Position Semi-Fowlers Blood Pressure Location Left Arm Physical Exam Const alert, oriented x3, no apparent distress, average body habitus, no limitations, healthy appearing and well nourished General Appearance: cooperative, comfortable, well kempt and well developed Orientation / Consciousness: awake, oriented to person, oriented to place and oriented to time HEENT normocephalic, head/scalp atraumatic and hearing grossly normal bilaterally Head and Scalp: normal to inspection, normocephalic and atraumatic External Ear: external ears normal Eyes PERRL and EOMs intact bilaterally General Eye: normal appearance of both eyes Resp normal respiratory effort, normal air movement, no retractions and no use of accessory muscles Effort and Inspection: able to speak in complete sentences and symmetric chest movement Extremity no calf tenderness General Extremity: Negative for clubbing or cyanosis Skin Wound Narrative: No significant swelling or edema are noted in the patient's left lower extremity. The excoriation in the distal left lower extremity is now completely healed and epithelialized. There are no open wounds or ulcerations in the patient's lower extremities. There is no sign of infection or cellulitis. A tuft of large varicosities are noted near the left medial malleolus. A tuft of small-sized varicosities are noted approximately 6 cm proximal to the left medial malleolus. Hair: male pattern alopecia Neuro oriented x3, CN's II-XII intact bilaterally, moves all extremities and no focal motor deficits Sensorium / Orientation: awake, alert, oriented to person, oriented to place and oriented to time Psych Appearance: grossly normal and appropriate Attitude: calm Activity / Motor Behavior: appropriate eye contact Speech: normal speech Mood & Affect: euthymic mood Thought Process: normal thought process Thought Content: normal thought content Attention / Concentration: attention grossly intact Debridement Note Debridement Note No debridement was completed: No debridement was completed today (There are no open wounds or ulcerations.) Post-Debridement Measurements and Additional Note: Post-Debridement Measurements/Treatment - Nurse 1 - General Ulcer Assessment Start: 06/09/23 08:58 Freq: Status: Active Protocol: YAN Activity Type Activity Date Activity User E-sign Co-sign Detail Recorded Client Recorded Date Recorded By Document 06/09/23 08:59 RB Desktop 06/09/23 09:03 RB 06/09/23 08:59 WC - Today's Visit Information Type of service Follow-up Visit (Physician/[facility] ) Arrival Mode Ambulatory Transfer Assistance None Patient Identification Verified (Name & Yes ) Patient Requires Transmission-Based No Precautions Vital Signs Temperature (97.8 F-99.1 F) 96.7 F L Temperature Source Temporal Pulse Rate (60-100) 95 Pulse Location Monitor Respiratory Rate (12-18) 18 Respiratory rate source Observation Blood Pressure (90/60-120/80) 145/86 H Blood Pressure Mean 105 Source Monitor Position Semi-Fowlers Blood Pressure Location Left Arm History Since Last Visit- (Skip if this is Patient's initial visit) Have you changed medications since your No last visit? Any new allergies or adverse reactions No Had a fall/change in ADL's that may No increase risk of falls Signs or symptoms of abuse and/or No neglect since last visit Have you been in the hospital since your No last visit? Has dressing in place as prescribed Yes Has compression in place as prescribed Yes Has offloadiing in place as prescribed No Experienced any changes in pain level or No management Pain Scale: 0-10 Numeric Is Patient Pain Free? Yes [facility] Nurse 1 - General Ulcer Measurement Start: 06/09/23 08:58 Freq: Status: Active Protocol: Activity Type Activity Date Activity User E-sign Co-sign Detail Recorded Client Recorded Date Recorded By Document 06/09/23 08:59 RB [employer] 06/09/23 09:03 RB 06/09/23 08:59 W[facility] Nurse 1 Lower Limb Edema Present Yes Right Calf (cm) 36.5 Right Ankle (cm) 21.8 Left Calf (cm) 36.9 Left Ankle (cm) 22 Assessment/Plan Assessment/Plan (1) Venous stasis ulcer of left ankle: CODE(S): I83.023 - Varicose veins of left lower extremity with ulcer of ankle; L97.329 - Non-pressure chronic ulcer of left ankle with unspecified severity QUALIFIERS: Varicose vein presence: with varicose veins Non- pressure ulcer stage: limited to breakdown of skin Qualified Code(s): I83.023 - Varicose veins of left lower extremity with ulcer of ankle; L97.321 - Non- pressure chronic ulcer of left ankle limited to breakdown of skin (2) Chronic venous insufficiency: CODE(S): I87.2 - Venous insufficiency (chronic) (peripheral) (3) Chronic venous hypertension with ulcer and inflammation involving left side: CODE(S): I87.332 - Chronic venous hypertension (idiopathic) with ulcer and inflammation of left lower extremity (4) Varicose veins of left lower extremity with inflammation, with ulcer of ankle limited to breakdown of skin: CODE(S): I83.223 - Varicose veins of left lower extremity with both ulcer of ankle and inflammation; L97.321 - Non-pressure chronic ulcer of left ankle limited to breakdown of skin (5) PFO (patent foramen ovale): CODE(S): Q21.12 - Patent foramen ovale (6) Paroxysmal atrial tachycardia: CODE(S): I47.1 - Supraventricular tachycardia (7) Tachycardia: CODE(S): R00.0 - Tachycardia, unspecified (8) Hyperlipidemia: CODE(S): E78.5 - Hyperlipidemia, unspecified (9) Lactose intolerance in adult: CODE(S): E73.9 - Lactose intolerance, unspecified (10) Erectile dysfunction: CODE(S): N52.9 - Male erectile dysfunction, unspecified (11) Varicose veins of lower extremity with inflammation, with ulcer of ankle with fat layer exposed: CODE(S): I83.203 - Varicose veins of unspecified lower extremity with both ulcer of ankle and inflammation; L97.302 - Non-pressure chronic ulcer of unspecified ankle with fat layer exposed (12) History of cataract extraction: CODE(S): Z98.49 - Cataract extraction status, unspecified eye (13) History of tonsillectomy: CODE(S): Z90.89 - Acquired absence of other organs (14) Umbilical hernia: CODE(S): K42.9 - Umbilical hernia without obstruction or gangrene PLAN: Plan This is a 77-year-old male with a long history of chronic venous insufficiency, chronic venous hypertension, lower extremity swelling and edema, and a recent superficial venous ulceration in the left lower extremity. A lengthy discussion has been undertaken with the patient with regard to the appropriate lifestyle changes relative to his chronic venous disease. The patient is to elevate his lower extremities is much as possible, during nighttime and daytime hours. He is to continue sleeping on a flat mattress at night. Leg elevation is to be to heart level, or higher, is much as possible. Prolonged idle sitting has been discouraged. Activity has been encouraged. The patient's weight appears to be optimal. The patient has been provided a prescription for graduated compression stockings of 20 to 30 mmHg compression, which are to be worn on a daily basis. Nonsteroidal anti-inflammatory medications have been recommended for pain, if needed. The patient's left lower extremity excoriation is now completely healed and epithelialized. He appears to be doing well with the measures implemented and described above. The patient is to be discharged, and will follow-up henceforth on an as-needed basis. He has been advised to return should he develop excoriations or ulcerations in the distal lower extremities which may be related to his chronic venous disease. His recent venous duplex examination revealed incompetence of the right great saphenous vein, left great saphenous vein, and left small saphenous vein. He will implement conservative treatment measures as discussed in detail, and follow-up if significant venous stasis changes or ulcerations recur. Total time: 25 minutes
== END 2023-06-10 15:46 | disposition home or self-care (01) ==
LOC: WC 08:46
PROVIDERS: PCP Family Medicine; Referring Provider Family Medicine; Visit Provider Surgery
DX: I83.223 Varicose veins of left lower extremity with both ulcer of ankle and inflammation (principal); L97.321 Non-pressure chronic ulcer of left ankle limited to breakdown of skin; E78.5 Hyperlipidemia, unspecified; K42.9 Umbilical hernia without obstruction or gangrene; Z87.891 Personal history of nicotine dependence; I47.19 Other supraventricular tachycardia; Q21.12 Patent foramen ovale
CPT/HCPCS: 99213; G0463